=== PATIENT | male | born 1960 | race Caucasian/White ===

== ENCOUNTER → 2016-11-29 | Outpatient (CLI) | payer OTHER ==
[~2016-11-29] VITALS: Ht 182.9 cm; Wt 96.2 kg
[~2016-11-29] MED LIST: ALTACE 5MG CAPSU5 MG PO; ATORVASTATIN CA10 MG PO
== END ==
LOC: DIETICIAN 11-22 10:00
DX: E78.5 Hyperlipidemia, unspecified (principal); Z71.3 Dietary counseling and surveillance

== ENCOUNTER → 2017-01-02 | Outpatient (CLI) | payer OTHER ==
[2017-01-02 10:48] LABS: BUN 14 mg/dL (7-18)
[2017-01-02 10:49] LABS: GFR (ESTIMATED) 78 ML/MIN (>60)
--- NOTE | 2017-01-04 07:08 | RADIOLOGY REPORT PS360 ---
CT ABD W/WO CONTRAST Ordering Physician: Js Mendes MD Patient Age: 56 years: Male TECHNIQUE: Helical CT scanning performed through the abdomen precontrast as well as postcontrast at 30 seconds, 60 seconds and 10 minute delay. HISTORY: LIVER NODULE,HEMANGIOMA PROTOCOL COMPARISON CTA abdomen without contrast 08/16/2013. Ultrasound right upper quadrant 12/19/2016 FINDINGS Recent ultrasound 12/19/2016 showed a hypoechoic area at the right lobe of the liver, which measures up to 1.4 cm. No prominent findings on today's CT but there are some subtle features. I believe the area on ultrasound correlates with the area of more anterior right lobe measuring up to 15 mm showing only very subtle enhancement on the 60 second venous image phase, and also seen into the evident on the delayed images. This is labeled A . Area labeled B is posteriorly at the right lobe. The second area is actually slightly more evident. & measures up to 17 mm size. It becomes most evident on the delayed images. Most compatible with benign hemangioma as I believe both of these areas are. In fact these areas I believe vaguely evident slightly hyperechoic on a July 2013 CT abdomen without contrast.. This suggested relative stability also supports benign entity. Spleen normal size. Pancreas appears satisfactory. Adrenals unremarkable. Kidneys enhance normally. No calculi nor obstruction. Gallbladder and common duct appears satisfactory. Lower pelvis. Urinary bladder upper normal wall thickness ureters unremarkable. GI tract. Stomach, small bowel unremarkable. Appendix normal. Mild/Moderate stool throughout colon. No significant findings Lung bases clear minimal coronary calcification LAD noted Osseous structures. No lesions identified note: This study was dictated with a voice-recognition system. There may be typographical error is related to such. If they are significant please notify us for corrections IMPRESSION: 1. Two vague areasright lobe of liver.. barely appreciable Similar/benign indolent entities.- Favor hemangiomasof liver I believe both were vaguely evident on a 2012 CT abdomen without contrast, with no significant interval change Area A: Vague 15 mm slightly hyperdense area likely correspond with ultrasound feature. Vague enhancement on delayed images most likely reflecting hemangioma. Area B: ~17 mm area more posteriorly at the right lobe shows slight enhancement most evident on delayed images, most likely reflecting benign hemangioma liver. Again both these areas were vaguely evident on 2012 2. Suggest a follow-up ultrasound abdomen in 3-4 months to further confirm stability of areas on ultrasound. 3. Remainder of abdomen pelvis satisfactory. No acute findings.
== END ==
LOC: RAD 10:27
PROVIDERS: Family Medicine
DX: K76.89 Other specified diseases of liver (principal)
CPT/HCPCS: Q9967

== ENCOUNTER → 2017-05-19 | Outpatient (CLI) | payer OTHER ==
[2017-05-19 09:37] LABS: BILIRUBIN, INDIRECT 0.43 mg/dL (0-0.9)
== END ==
LOC: LAB 07:12
PROVIDERS: Internal Medicine Cardiovascular Disease
DX: I10 Essential (primary) hypertension (principal); E78.5 Hyperlipidemia, unspecified; I25.10 Atherosclerotic heart disease of native coronary artery without angina pectoris

== ENCOUNTER → 2017-06-23 | Outpatient (CLI) | payer OTHER ==
--- NOTE | 2017-06-23 15:00 | RADIOLOGY REPORT PS360 ---
US RUQ-(ABD LTD)1ORGAN/QUAD/FU COMPARISON: Ultrasound right upper quadrant for 3 2016 HISTORY: Elevated liver enzymes TECHNIQUE: Targeted ultrasound right upper quadrant FINDINGS: Overall liver size is normal but again noted is diffuse increased echogenicity consistent with fatty infiltration. There is well-defined hypoechoic nodular lesion in the right lobe of the liver with faint internal echoes. This measures 1.6 x 1.8 cm and could represent a small adenoma or hemangioma. Is stable and unchanged in appearance from previous exam. The pancreas appears normal though portion of the tail is obscured by bowel gas. The gallbladder is normal in size and there are no gallstones and no definite sludge is seen. The common bile duct is normal caliber. The right kidney measures 11.5 x 5.4 x 6.1 cm and shows a good cortical medullary junction with no hydronephrosis or other abnormality. IMPRESSION: Stable hepatic steatosis and stable hypoechoic but solid nodule right lobe of liver
== END ==
LOC: RAD 08:08
DX: D18.03 Hemangioma of intra-abdominal structures (principal); R94.5 Abnormal results of liver function studies

== ENCOUNTER → 2017-08-02 | Outpatient (CLI) | payer OTHER | LOC: LAB 15:30 | DX: R94.5 Abnormal results of liver function studies (principal) ==